=== PATIENT | female | born 1995 | race African-American/Black ===

== ENCOUNTER 2024-06-24 17:04 | Inpatient (IN) | payer OTHER ==
[2024-06-24 17:53] LABS: #Basophils 0.05 10x3/uL (0.0-0.2); %Basophils 0.6 % (0.0-1.0); %Eosinophils 0.6 % (0.0-10.0); %Monocytes 4.2 % (0.0-10.0); %Neutrophils 71.3 % (42.0-75.0); Hemoglobin 14.6 g/dL (12.0-16.0); Mean Corpuscular Hemoglobin 31.1 pg (27.0-31.0); Mean Corpuscular Volume 91.7 fL (78.0-98.0); Mean Platelet Volume 12.3 fL (7.4-10.4); Platelet Count 159 10x3/uL (130-400); RBC Distribution Width 12.9 % (11.5-14.5); Red Blood Cell (RBC) Count 4.69 mill/uL (4.20-5.40)
[2024-06-24 18:21] LABS: ALT (SGPT) 14 U/L (8-55); AST (SGOT) 19 U/L (5-34); Alkaline Phosphatase 88 U/L (40-110); Anion Gap 27 mmol/L (10-20); BUN (Urea Nitrogen) 11 mg/dL (7.0-18.7); Bilirubin, Total 0.3 mg/dL (0.2-1.2); Calc. Creatinine Clearance 0 mL/min (70-130); Calcium 9.3 mg/dL (7.8-10.44); Carbon Dioxide 10 mmol/L (22-29); Chloride 98 mmol/L (98-107); Estimated GFR 58; Globulin 3.9 g/dL (2.4-3.5); Glucose 370 mg/dL (70-105); Lipase 13 U/L (8-78); Potassium 4.6 mmol/L (3.5-5.1); Protein, Total 7.9 g/dL (6.0-8.3); Sodium 130 mmol/L (136-145)
[2024-06-24] MEDS ORDERED: Electrolyte Replacement Protocol 1 EACH IVPB SCH (19:37)
[2024-06-24] MEDS ORDERED: NS 0.9% w/ 20 MEQ KCL 1,000 ML IV PRN (19:37)
[2024-06-24] MEDS ORDERED: Sodium Chloride 0.9% 1,000 ML IV PRN ×4 (19:37)
[2024-06-24] MEDS ORDERED: Calcium Carbonate 500 MG ChewTAB PO PRN (19:37)
[2024-06-24] MEDS ORDERED: Ondansetron PF 4 MG/2 ML Vial IVP PRN (19:37)
[2024-06-24] MEDS ORDERED: Acetaminophen/Codeine 30-300mg Tablet PO PRN (19:37)
[2024-06-24] MEDS ORDERED: Dextrose 5 %-0.45 % NaCl 1,000 ML IV PRN (19:37)
[2024-06-24] MEDS ORDERED: Senokot S 8.6-50 MG TAB PO PRN (19:37)
[2024-06-24] MEDS ORDERED: Acetaminophen 325 MG TAB PO PRN (19:37)
[2024-06-24] MEDS ORDERED: INSULIN REGULAR IN 0.9 % NACL 100 ML IVPB SCH (19:45)
[2024-06-24] MEDS ORDERED: INSULIN REGULAR IN 0.9 % NACL 100 ML ONE (20:16)
[2024-06-24 20:49] LABS: Anion Gap 22 mmol/L (10-20); BUN (Urea Nitrogen) 10 mg/dL (7.0-18.7); Calc. Creatinine Clearance 0 mL/min (70-130); Calcium 9.2 mg/dL (7.8-10.44); Carbon Dioxide 16 mmol/L (22-29); Chloride 99 mmol/L (98-107); Estimated GFR 65; Glucose 257 mg/dL (70-105); Potassium 4.1 mmol/L (3.5-5.1); Sodium 133 mmol/L (136-145)
[2024-06-24 22:09] LABS: Bacteria/HPF None Seen HPF (None Seen); Bilirubin Negative (Negative); Blood, Urine Negative (Negative); CAUTI Indications for Culture Pelvic or flank pain; Clarity Clear (Clear); Glucose, Urine (Dipstick) Greater than 1000 mg/dL (Negative); Ketone, Urine Greater than 150 mg/dL (Negative); Leukocyte Negative Leu/uL (Negative); Nitrite Negative (Negative); Protein, Urine (Dipstick) Negative (Neg-Trace); RBC/HPF 0-3 HPF (0-3); Specific Gravity, Urine 1.018 (1.002-1.036); Squamous Epithelial 0-3 HPF (0-3); Urobilinogen Normal mg/dL (Less than 2); WBC/HPF 0-3 HPF (0-3)
[2024-06-24 22:10] LABS: Urine Culture Reflex No No
[2024-06-24 22:23] VITALS: BMI 25.1
[2024-06-24] MEDS: NS 0.9% w/ 20 MEQ KCL 1,000 ML IV PRN (22:45)
[2024-06-24] MEDS: Dextrose 50% Abboject 50 ML SYRINGE SLOW IVP PRN (23:05)
[2024-06-25 00:34] LABS: Anion Gap 14 mmol/L (10-20); BUN (Urea Nitrogen) 8 mg/dL (7.0-18.7); Calc. Creatinine Clearance 92 mL/min (70-130); Carbon Dioxide 17 mmol/L (22-29); Chloride 107 mmol/L (98-107); Estimated GFR 83; Glucose 164 mg/dL (70-105); Potassium 3.8 mmol/L (3.5-5.1); Sodium 134 mmol/L (136-145)
[2024-06-25] MEDS: D5 1/2 NS w/20 mEq KCL 1,000 ML IV PRN (00:43)
[2024-06-25] MEDS: Sodium Bicarb 50 MEQ/50 ML Abboject 8.4% SYRINGE IVP SCH (01:46)
[2024-06-25] MEDS: Sodium Chloride 0.9% 1,000 ML IV SCH ×2 (01:46→11:26)
[2024-06-25] MEDS: Famotidine/PF 20 mg/2ml Vial SLOW IVP SCH (01:48)
[2024-06-25 04:12] LABS: Hemoglobin A1c 9.4 % (4.0-6.0)
[2024-06-25 04:16] LABS: Anion Gap 12 mmol/L (10-20); Anion Gap 13 mmol/L (10-20); BUN (Urea Nitrogen) 6 mg/dL (7.0-18.7); BUN (Urea Nitrogen) 7 mg/dL (7.0-18.7); Calc. Creatinine Clearance 101 mL/min (70-130); Calc. Creatinine Clearance 99 mL/min (70-130); Calcium 7.8 mg/dL (7.8-10.44); Carbon Dioxide 16 mmol/L (22-29); Chloride 109 mmol/L (98-107); Chloride 110 mmol/L (98-107); Estimated GFR 90; Estimated GFR 92; Glucose 183 mg/dL (70-105); Magnesium 1.5 mg/dL (1.6-2.6); Phosphorus 2.4 mg/dL (2.3-4.7); Sodium 134 mmol/L (136-145)
[2024-06-25] MEDS: Sodium Chloride 0.9% 500 ML IV SCH (04:51)
[2024-06-25] MEDS: Enoxaparin 40 MG (0.4 mL) SYRINGE SC SCH (09:04)
[2024-06-25] MEDS: Fluconazole 100 MG TAB PO SCH (09:14)
[2024-06-25] MEDS: Magnesium 2 GM/50 ML(in water) 2 GM in Premix 1 BAG IVPB SCH (10:07)
[2024-06-25] MEDS: Sodium Bicarbonate Tab 325 MG TAB PO SCH (11:25)
[2024-06-25] MEDS: Insulin Glargine 30 UNITS/0.3 ML VIAL SC SCH (11:25)
[2024-06-25] MEDS ORDERED: Glucagon 1 MG/ML KIT IM PRN (11:47)
[2024-06-25] MEDS ORDERED: Dextrose 5% in Water 1,000 ML IV PRN (11:47)
[2024-06-25] MEDS ORDERED: Dextrose 50% Abboject 50 ML SYRINGE SLOW IVP PRN (11:47)
[2024-06-25 12:14] VITALS: TEMP 98.4
[2024-06-25] MEDS: Insulin Lispro 100 UNIT/ML 10 ML VIAL SC PRN (12:36)
[2024-06-25 14:37] LABS: Anion Gap 11 mmol/L (10-20); BUN (Urea Nitrogen) 4 mg/dL (7.0-18.7); Calc. Creatinine Clearance 112 mL/min (70-130); Calcium 7.9 mg/dL (7.8-10.44); Carbon Dioxide 19 mmol/L (22-29); Chloride 112 mmol/L (98-107); Estimated GFR 104; Glucose 120 mg/dL (70-105); Potassium 3.9 mmol/L (3.5-5.1); Sodium 138 mmol/L (136-145)
[2024-06-25] MEDS ORDERED: Lithium Carbonate 300 MG ER.TAB PO SCH (21:00)
== END 2024-06-25 15:30 | disposition home or self-care (01) | DRG 638 ==
LOC: ERS 17:04 → SUATTDRO 17:04 → ERHOLD 19:35 → IMCU/EMU 22:09
PROVIDERS: ADMIT Internal Medicine; ATTEND Family Medicine
DX: E10.10 Type 1 diabetes mellitus with ketoacidosis without coma (principal); E87.1 Hypo-osmolality and hyponatremia; N17.9 Acute kidney failure, unspecified; F39 Unspecified mood [affective] disorder; B37.31 Acute candidiasis of vulva and vagina
CPT/HCPCS: 36415; 36416; 80048; 80053; 81001; 82010; 83036; 83690; 83735; 84100; 85025; 96365; J1650; J1815; J3475; J3480; J3490; J7030; J7999

== ENCOUNTER 2024-08-15 12:07 | Inpatient (IN) | payer OTHER ==
[2024-08-15 12:36] LABS: Calcium, Ionized (venous) 1.32 mmol/L (1.16-1.32); Chloride (VBG) 101 mmol/L (98-106); Hematocrit-VBG 48 % (36.0-47.0); Hemoglobin (Hb) 16.3 g/dL (11.7-15.5); Sodium 136 mmol/L (133-146)
[2024-08-15 12:37] LABS: pH (venous) 6.965 (7.32-7.43)
[2024-08-15 12:38] LABS: Actual Bicarbonate (HCO3v) 4.6 mEq/L (22-28)
[2024-08-15] MEDS ORDERED: INSULIN REGULAR IN 0.9 % NACL 100 ML ONE (12:42)
[2024-08-15 12:47] LABS: Hematocrit 48.6 % (36.0-47.0); Hemoglobin 15.3 g/dL (12.0-16.0); Mean Corpuscular HGB CONC 31.5 g/dL (32.0-36.0); Mean Corpuscular Hemoglobin 30.6 pg (27.0-31.0); Mean Corpuscular Volume 97.2 fL (78.0-98.0); Mean Platelet Volume 12.2 fL (7.4-10.4); Platelet Count 277 10x3/uL (130-400)
[2024-08-15 12:59] LABS: Phosphorus 6.9 mg/dL (2.3-4.7)
[2024-08-15 13:00] LABS: Troponin I Less than 0.010 ng/mL (< 0.028)
[2024-08-15 13:08] LABS: Band 4 % (5-11); Lymphocytes 7 % (21-51); Monocytes 5 % (0-10); Neutrophil 83 % (42-75); Platelet Adequacy Comment Platelets Normal; Reactive Lymphocytes 1 % (0-10)
[2024-08-15] MEDS ORDERED: Sodium Bicarb 50 mEq/50 ML VIAL ONE (13:08)
[2024-08-15 13:13] LABS: ALT (SGPT) 21 U/L (8-55); AST (SGOT) 20 U/L (5-34); Albumin 4.5 g/dL (3.5-5.0); Alkaline Phosphatase 120 U/L (40-110); BUN (Urea Nitrogen) 22 mg/dL (7.0-18.7); Bilirubin, Total 0.3 mg/dL (0.2-1.2); Calc. Creatinine Clearance 0 mL/min (70-130); Carbon Dioxide Less than 8 mmol/L (22-29); Chloride 100 mmol/L (98-107); Estimated GFR 34; Globulin 4.8 g/dL (2.4-3.5); Glucose 742 mg/dL (70-105); Lipase 16 U/L (8-78); Magnesium 2.2 mg/dL (1.6-2.6); Potassium 6.1 mmol/L (3.5-5.1); Protein, Total 9.3 g/dL (6.0-8.3); Sodium 132 mmol/L (136-145)
[2024-08-15] MEDS: Sodium Bicarb 50 MEQ/50 ML Abboject 8.4% SYRINGE IVP SCH (13:40)
[2024-08-15 14:58] LABS: BHCG - Serum Negative (NEGATIVE); Pregs Control Background? CLEAR/WHITE (CLR/WHITE); Pregs Control Bar Appear? YES (CONTROL BAR)
[2024-08-15 15:39] LABS: Bacteria/HPF None Seen HPF (None Seen); Bilirubin Negative (Negative); Blood, Urine 1+ (Negative); CAUTI Indications for Culture Acute Hematuria; Clarity Clear (Clear); Glucose, Urine (Dipstick) Greater than 1000 mg/dL (Negative); Ketone, Urine 150 mg/dL (Negative); Leukocyte Negative Leu/uL (Negative); Nitrite Negative (Negative); Protein, Urine (Dipstick) 30 mg/dL (Neg-Trace); RBC/HPF None Seen HPF (0-3); Specific Gravity, Urine 1.022 (1.002-1.036); Squamous Epithelial None Seen HPF (0-3); Urobilinogen Normal mg/dL (Less than 2); WBC/HPF 0-3 HPF (0-3)
[2024-08-15 15:40] LABS: Urine Culture Reflex No No
[2024-08-15] MEDS ORDERED: NS 0.9% w/ 20 MEQ KCL 1,000 ML IV PRN ×2 (15:53)
[2024-08-15] MEDS ORDERED: Dextrose 50% Abboject 50 ML SYRINGE SLOW IVP PRN (15:53)
[2024-08-15] MEDS ORDERED: Dextrose 5 %-0.45 % NaCl 1,000 ML IV PRN (15:53)
[2024-08-15] MEDS ORDERED: Sodium Chloride 0.9% 1,000 ML IV PRN ×3 (15:53)
[2024-08-15] MEDS ORDERED: Electrolyte Replacement Protocol 1 EACH IVPB SCH (15:53)
[2024-08-15] MEDS ORDERED: Senokot S 8.6-50 MG TAB PO PRN (15:55)
[2024-08-15] MEDS ORDERED: Calcium Carbonate 500 MG ChewTAB PO PRN (15:55)
[2024-08-15] MEDS ORDERED: Ondansetron PF 4 MG/2 ML Vial IVP PRN (15:55)
[2024-08-15] MEDS ORDERED: Acetaminophen 325 MG TAB PO PRN (15:55)
[2024-08-15] MEDS ORDERED: Ondansetron ODT 4 MG TAB PO PRN (15:55)
[2024-08-15] MEDS ORDERED: INSULIN REGULAR IN 0.9 % NACL 100 ML IVPB SCH (16:00)
[2024-08-15] MEDS: Droperidol 5 MG/2 ML VIAL SLOW IVP SCH (16:45)
[2024-08-15] MEDS: Sodium Chloride 0.9% 1,000 ML IV PRN (17:10)
[2024-08-15 17:54] LABS: Anion Gap 25 mmol/L (10-20); BUN (Urea Nitrogen) 18 mg/dL (7.0-18.7); Calc. Creatinine Clearance 0 mL/min (70-130); Calcium 9.5 mg/dL (7.8-10.44); Carbon Dioxide Less than 8 mmol/L (22-29); Chloride 113 mmol/L (98-107); Estimated GFR 53; Glucose 214 mg/dL (70-105); Potassium 4.5 mmol/L (3.5-5.1); Sodium 140 mmol/L (136-145)
[2024-08-15] MEDS: D5 1/2 NS w/20 mEq KCL 1,000 ML IV PRN (19:01)
[2024-08-15 19:49] VITALS: BMI 23.6
[2024-08-15] MEDS: Famotidine 20 MG TAB PO SCH (20:07)
[2024-08-15] MEDS: Famotidine/PF 20 mg/2ml Vial SLOW IVP SCH (20:07)
[2024-08-15] MEDS: Heparin 5,000 UNITS/ML VIAL SC SCH (20:07)
[2024-08-15 20:54] LABS: Anion Gap 18 mmol/L (10-20); BUN (Urea Nitrogen) 14 mg/dL (7.0-18.7); Calc. Creatinine Clearance 76 mL/min (70-130); Calcium 8.7 mg/dL (7.8-10.44); Carbon Dioxide 11 mmol/L (22-29); Chloride 116 mmol/L (98-107); Estimated GFR 71; Glucose 162 mg/dL (70-105); Potassium 4.2 mmol/L (3.5-5.1); Sodium 141 mmol/L (136-145)
[2024-08-16 01:17] LABS: Anion Gap 15 mmol/L (10-20); BUN (Urea Nitrogen) 11 mg/dL (7.0-18.7); Calc. Creatinine Clearance 73 mL/min (70-130); Calcium 8.3 mg/dL (7.8-10.44); Carbon Dioxide 11 mmol/L (22-29); Chloride 116 mmol/L (98-107); Estimated GFR 68; Glucose 198 mg/dL (70-105); Potassium 3.6 mmol/L (3.5-5.1); Sodium 138 mmol/L (136-145)
[2024-08-16 04:17] LABS: #Basophils 0.03 10x3/uL (0.0-0.2); #Eosinophils Less than 0.03 10x3/uL (0.0-0.7); %Basophils 0.3 % (0.0-1.0); %Lymphocytes 14.4 % (21.0-51.0); %Monocytes 7.2 % (0.0-10.0); %Neutrophils 77.6 % (42.0-75.0); Hematocrit 33.3 % (36.0-47.0); Hemoglobin 11.5 g/dL (12.0-16.0); Mean Corpuscular HGB CONC 34.5 g/dL (32.0-36.0); Mean Corpuscular Hemoglobin 31.3 pg (27.0-31.0); Mean Corpuscular Volume 90.5 fL (78.0-98.0); Mean Platelet Volume 11.5 fL (7.4-10.4); Platelet Count 168 10x3/uL (130-400); RBC Distribution Width 12.9 % (11.5-14.5); Red Blood Cell (RBC) Count 3.68 mill/uL (4.20-5.40)
[2024-08-16 06:44] LABS: Anion Gap 10 mmol/L (10-20); BUN (Urea Nitrogen) 10 mg/dL (7.0-18.7); Calc. Creatinine Clearance 93 mL/min (70-130); Calcium 8.5 mg/dL (7.8-10.44); Carbon Dioxide 15 mmol/L (22-29); Chloride 117 mmol/L (98-107); Estimated GFR 90; Glucose 206 mg/dL (70-105); Magnesium 1.7 mg/dL (1.6-2.6); Phosphorus 0.7 mg/dL (2.3-4.7); Potassium 4.1 mmol/L (3.5-5.1); Sodium 138 mmol/L (136-145)
[2024-08-16] MEDS ORDERED: Potassium Phosphate 30 MMOL in Sodium Chloride 0.9% 250 ML 250 ML IVPB SCH (08:00)
[2024-08-16] MEDS: Magnesium 2 GM/50 ML(in water) 2 GM in Premix 1 BAG IVPB SCH (08:04)
[2024-08-16] MEDS ORDERED: Dextrose 50% Abboject 50 ML SYRINGE SLOW IVP PRN (09:20)
[2024-08-16] MEDS ORDERED: Glucagon 1 MG/ML KIT IM PRN (09:20)
[2024-08-16] MEDS ORDERED: Insulin Regular, Human 100 UNIT/ML 10 ML VIAL SC PRN (09:20)
[2024-08-16] MEDS ORDERED: Dextrose 5% in Water 1,000 ML IV PRN (09:20)
[2024-08-16] MEDS ORDERED: D5 LR w/20 mEq KCL 1,000 ML IV SCH (09:30)
[2024-08-16] MEDS: Insulin Glargine 30 UNITS/0.3 ML VIAL SC SCH (09:50)
[2024-08-16] MEDS: Sodium Phosphate 30 MMOL in Sodium Chloride 0.9% 250 ML 250 ML IVPB SCH (09:51)
[2024-08-16] MEDS ORDERED: Potassium Chloride 20 MEQ in Lactated Ringer's 1,000 ML IV SCH (15:15)
[2024-08-16] MEDS: Insulin Regular, Human 100 UNIT/ML 10 ML VIAL SC PRN (18:43)
[2024-08-17 08:14] LABS: Anion Gap 15 mmol/L (10-20); BUN (Urea Nitrogen) 4 mg/dL (7.0-18.7); Calc. Creatinine Clearance 107 mL/min (70-130); Calcium 8.2 mg/dL (7.8-10.44); Carbon Dioxide 15 mmol/L (22-29); Chloride 109 mmol/L (98-107); Estimated GFR 107; Glucose 306 mg/dL (70-105); Magnesium 1.6 mg/dL (1.6-2.6); Potassium 3.8 mmol/L (3.5-5.1); Sodium 135 mmol/L (136-145)
[2024-08-17 08:20] LABS: Phosphorus 1.7 mg/dL (2.3-4.7)
[2024-08-17] MEDS ORDERED: FLU (Fluarix Triv) TS24-25(6MOS UP)/PF 45 MCG/0.5 ML Syringe IM ONE (09:00)
[2024-08-17] MEDS ORDERED: Insulin Glargine 30 UNITS/0.3 ML VIAL SC SCH (09:00)
[2024-08-17] MEDS ORDERED: Insulin Regular 300 UNITS/3 ML VIAL SC PRN (09:14)
[2024-08-17] MEDS: Potassium Phosphate 30 MMOL in Sodium Chloride 0.9% 250 ML 250 ML IVPB SCH (10:02)
[2024-08-17] MEDS: Magnesium 2 GM/50 ML(in water) 2 GM in Premix 1 BAG IVPB SCH (10:02)
[2024-08-17] MEDS: Insulin Glargine 30 UNITS/0.3 ML VIAL SC SCH (10:03)
[2024-08-17] MEDS: Insulin Regular, Human 100 UNIT/ML 10 ML VIAL SC PRN (12:50)
[2024-08-17 17:08] VITALS: BP 113/68; TEMP 98
[2024-08-18] MEDS ORDERED: Insulin Glargine 30 UNITS/0.3 ML VIAL SC SCH (09:00)
== END 2024-08-17 17:15 | DRG 638 ==
LOC: ERS 12:07 → IMCU/EMU 13:33 → EEVIPCON 13:33 → MSONC 08-16 13:49
PROVIDERS: ADMIT Internal Medicine; ATTEND Internal Medicine
DX: E10.10 Type 1 diabetes mellitus with ketoacidosis without coma (principal); E87.1 Hypo-osmolality and hyponatremia; N17.9 Acute kidney failure, unspecified; E87.5 Hyperkalemia; E83.42 Hypomagnesemia; F31.9 Bipolar disorder, unspecified; D53.9 Nutritional anemia, unspecified; E86.0 Dehydration; E83.39 Other disorders of phosphorus metabolism; Z91.041 Radiographic dye allergy status; Z79.899 Other long term (current) drug therapy; Z79.4 Long term (current) use of insulin
CPT/HCPCS: 36415; 36416; 71045; 80048; 80053; 81001; 82010; 82805; 83690; 83735; 84100; 84484; 84703; 85025; 93005; 94760; 96361; 96365; 96366; 96374; 96375; J1644; J1790; J1815; J3475; J3480; J3490; J7030; J7050

== ENCOUNTER 2024-08-29 12:00 | Inpatient (IN) | payer OTHER ==
[2024-08-29 12:37] LABS: #Basophils 0.04 10x3/uL (0.0-0.2); #Eosinophils Less than 0.03 10x3/uL (0.0-0.7); %Basophils 0.6 % (0.0-1.0); %Eosinophils 0.3 % (0.0-10.0); %Lymphocytes 14.9 % (21.0-51.0); %Monocytes 3.6 % (0.0-10.0); %Neutrophils 80.5 % (42.0-75.0); Hematocrit 35.7 % (36.0-47.0); Hemoglobin 12.1 g/dL (12.0-16.0); Mean Corpuscular HGB CONC 33.9 g/dL (32.0-36.0); Mean Corpuscular Hemoglobin 31.3 pg (27.0-31.0); Mean Corpuscular Volume 92.2 fL (78.0-98.0); Mean Platelet Volume 10.7 fL (7.4-10.4); Platelet Count 286 10x3/uL (130-400); RBC Distribution Width 13.5 % (11.5-14.5); Red Blood Cell (RBC) Count 3.87 mill/uL (4.20-5.40)
[2024-08-29 12:44] LABS: BHCG - Serum Negative (NEGATIVE); Pregs Control Background? CLEAR/WHITE (CLR/WHITE); Pregs Control Bar Appear? YES (CONTROL BAR)
[2024-08-29 12:53] LABS: Lipase 26 U/L (8-78); Magnesium 1.7 mg/dL (1.6-2.6)
[2024-08-29 12:54] LABS: Acetaminophen Less than 10 mcg/mL (Less than 10); Alcohol Less than 10.0 mg/dL (Less than 10); Salicylate Less than 8.0 mg/dL (Less than 8.0)
[2024-08-29 13:34] LABS: Base Excess -11.6 mEq/L (-2.0 to +3.0); Calcium, Ionized (venous) 1.14 mmol/L (1.16-1.32); Chloride (VBG) 105 mmol/L (98-106); Hematocrit-VBG 35 % (36.0-47.0); Hemoglobin (Hb) 11.8 g/dL (11.7-15.5); Potassium (VBG) 3.46 mmol/L (3.70-5.30); Sodium 136 mmol/L (133-146); pH (venous) 7.325 (7.32-7.43)
[2024-08-29 13:37] LABS: Actual Bicarbonate (HCO3v) 12.7 mEq/L (22-28)
[2024-08-29 13:45] LABS: ALT (SGPT) 15 U/L (8-55); AST (SGOT) 13 U/L (5-34); Albumin 3.7 g/dL (3.5-5.0); Alkaline Phosphatase 77 U/L (40-110); Anion Gap 21 mmol/L (10-20); BUN (Urea Nitrogen) 10 mg/dL (7.0-18.7); Bilirubin, Total 0.6 mg/dL (0.2-1.2); Calc. Creatinine Clearance 0 mL/min (70-130); Calcium 8.7 mg/dL (7.8-10.44); Carbon Dioxide 12 mmol/L (22-29); Chloride 103 mmol/L (98-107); Estimated GFR 81; Globulin 3.6 g/dL (2.4-3.5); Glucose 585 mg/dL (70-105); Potassium 3.4 mmol/L (3.5-5.1); Protein, Total 7.3 g/dL (6.0-8.3); Sodium 133 mmol/L (136-145)
[2024-08-29] MEDS ORDERED: NS 0.9% w/ 20 MEQ KCL 1,000 ML IV PRN ×2 (15:24)
[2024-08-29] MEDS ORDERED: Dextrose 50% Abboject 50 ML SYRINGE SLOW IVP PRN (15:24)
[2024-08-29] MEDS ORDERED: Ondansetron PF 4 MG/2 ML Vial IVP PRN (15:24)
[2024-08-29] MEDS ORDERED: Acetaminophen 650 MG Suppository PR PRN (15:24)
[2024-08-29] MEDS ORDERED: Dextrose 5 %-0.45 % NaCl 1,000 ML IV PRN (15:24)
[2024-08-29] MEDS ORDERED: Bisacodyl 10 MG SUPP PR PRN (15:24)
[2024-08-29] MEDS ORDERED: Sodium Chloride 0.9% 1,000 ML IV PRN ×3 (15:24)
[2024-08-29] MEDS ORDERED: Electrolyte Replacement Protocol FS PRN (15:45)
[2024-08-29] MEDS: Sodium Chloride 0.9% 1,000 ML IV PRN (19:16)
[2024-08-29] MEDS: Electrolyte Replacement Protocol 1 EACH IVPB ONE (19:17)
[2024-08-29] MEDS: INSULIN REGULAR IN 0.9 % NACL 100 ML IVPB SCH (19:57)
[2024-08-29 20:31] LABS: Lactic Acid 1.19 mmol/L (0.5-2.2)
[2024-08-29 20:33] LABS: Anion Gap 19 mmol/L (10-20); BUN (Urea Nitrogen) 6 mg/dL (7.0-18.7); Calc. Creatinine Clearance 134 mL/min (70-130); Calcium 8.2 mg/dL (7.8-10.44); Carbon Dioxide 14 mmol/L (22-29); Chloride 107 mmol/L (98-107); Estimated GFR 124; Glucose 351 mg/dL (70-105); Potassium 3.9 mmol/L (3.5-5.1); Sodium 136 mmol/L (136-145)
[2024-08-29] MEDS: Famotidine/PF 20 mg/2ml Vial SLOW IVP SCH (21:37)
[2024-08-29] MEDS: D5 1/2 NS w/20 mEq KCL 1,000 ML IV PRN (21:37)
[2024-08-29] MEDS: Magnesium 2 GM/50 ML(in water) 2 GM in Premix 1 BAG IVPB SCH (21:42)
[2024-08-29 23:05] LABS: Amphetamine Not Detected (NotDetected); Barbiturates Screen Not Detected (NotDetected); Benzodiazepine Screen Not Detected (NotDetected); Cocaine Metabolite Screen Not Detected (NotDetected); Methadone Not Detected (NotDetected); Methamphetamine Not Detected (NotDetected); Opiate Screen Not Detected (NotDetected); Oxycodone Screen Not Detected (NotDetected); Phencyclidine (PCP) Not Detected (NotDetected); THC/Cannabinoid Screen Not Detected (NotDetected); Tricyclic Screen Not Detected (NotDetected)
[2024-08-30] LABS: Anion Gap 11 mmol/L (10-20); BUN (Urea Nitrogen) 5 mg/dL (7.0-18.7); Calc. Creatinine Clearance 137 mL/min (70-130); Calcium 8.3 mg/dL (7.8-10.44); Carbon Dioxide 19 mmol/L (22-29); Chloride 113 mmol/L (98-107); Estimated GFR 124; Glucose 97 mg/dL (70-105); Potassium 3.2 mmol/L (3.5-5.1); Sodium 140 mmol/L (136-145)
[2024-08-30] MEDS: Potassium Chloride 20 MEQ in Premix 1 BAG IVPB SCH (01:42)
[2024-08-30 02:41] LABS: Actual Bicarbonate (HCO3v) 17.6 mEq/L (22-28); Base Excess -7.8 mEq/L (-2.0 to +3.0); Calcium, Ionized (venous) 1.15 mmol/L (1.16-1.32); Chloride (VBG) 106 mmol/L (98-106); Hematocrit-VBG 35 % (36.0-47.0); Hemoglobin (Hb) 11.9 g/dL (11.7-15.5); Potassium (VBG) 4.23 mmol/L (3.70-5.30); Sodium 134 mmol/L (133-146); pH (venous) 7.316 (7.32-7.43)
[2024-08-30 02:47] LABS: #Basophils 0.03 10x3/uL (0.0-0.2); %Basophils 0.5 % (0.0-1.0); %Eosinophils 0.7 % (0.0-10.0); %Lymphocytes 32.5 % (21.0-51.0); %Monocytes 5.1 % (0.0-10.0); Hemoglobin 10.7 g/dL (12.0-16.0); Mean Corpuscular HGB CONC 33.4 g/dL (32.0-36.0); Mean Corpuscular Hemoglobin 31.1 pg (27.0-31.0); Mean Platelet Volume 10.4 fL (7.4-10.4); Platelet Count 246 10x3/uL (130-400); RBC Distribution Width 13.7 % (11.5-14.5); Red Blood Cell (RBC) Count 3.44 mill/uL (4.20-5.40)
[2024-08-30 03:04] LABS: A1c 263.408 g/dL; Hb (HGBA1c) 2881.3292 umol/L; Hemoglobin A1c 10.5 % (4.0-6.0)
[2024-08-30 03:06] LABS: Anion Gap 12 mmol/L (10-20); BUN (Urea Nitrogen) 4 mg/dL (7.0-18.7); Calc. Creatinine Clearance 130 mL/min (70-130); Calcium 7.7 mg/dL (7.8-10.44); Carbon Dioxide 16 mmol/L (22-29); Chloride 111 mmol/L (98-107); Estimated GFR 123; Glucose 268 mg/dL (70-105); Potassium 4.3 mmol/L (3.5-5.1); Sodium 135 mmol/L (136-145)
[2024-08-30 04:47] LABS: ALT (SGPT) 11 U/L (8-55); AST (SGOT) 10 U/L (5-34); Albumin 2.8 g/dL (3.5-5.0); Alkaline Phosphatase 62 U/L (40-110); Bilirubin, Direct 0.3 mg/dL (0.1-0.3); Bilirubin, Total 0.6 mg/dL (0.2-1.2); Protein, Total 5.6 g/dL (6.0-8.3)
[2024-08-30 04:48] LABS: Phosphorus 1.5 mg/dL (2.3-4.7)
[2024-08-30 05:44] LABS: Magnesium 2.3 mg/dL (1.6-2.6)
[2024-08-30] MEDS: Potassium Phosphate 22 MMOL in Sodium Chloride 0.9% 250 ML 250 ML IVPB SCH (05:54)
[2024-08-30] MEDS ORDERED: Glucagon 1 MG/ML KIT IM PRN ×2 (08:47→09:00)
[2024-08-30] MEDS ORDERED: Dextrose 5% in Water 1,000 ML IV PRN ×2 (08:47→09:00)
[2024-08-30] MEDS ORDERED: Dextrose 50% Abboject 50 ML SYRINGE SLOW IVP PRN ×2 (08:47→09:00)
[2024-08-30] MEDS: Insulin Glargine 30 UNITS/0.3 ML VIAL SC SCH (10:07)
[2024-08-30] MEDS: Enoxaparin 40 MG (0.4 mL) SYRINGE SC SCH (10:07)
[2024-08-30] MEDS: risperiDONE 0.25 MG TAB PO SCH (10:07)
[2024-08-30 10:11] LABS: Anion Gap 16 mmol/L (10-20); BUN (Urea Nitrogen) Less than 4 mg/dL (7.0-18.7); Calc. Creatinine Clearance 132 mL/min (70-130); Carbon Dioxide 15 mmol/L (22-29); Chloride 110 mmol/L (98-107); Estimated GFR 123; Glucose 268 mg/dL (70-105); Potassium 4.7 mmol/L (3.5-5.1); Sodium 136 mmol/L (136-145)
[2024-08-30] MEDS: Insulin Lispro 100 UNIT/ML 10 ML VIAL SC PRN ×2 (11:12→19:34)
[2024-08-30] MEDS: Lithium Carbonate 300 MG ER.TAB PO SCH (19:35)
[2024-08-31 05:57] LABS: #Basophils Less than 0.03 10x3/uL (0.0-0.2); %Basophils 0.2 % (0.0-1.0); %Eosinophils 1.1 % (0.0-10.0); %Monocytes 5.2 % (0.0-10.0); %Neutrophils 64.3 % (42.0-75.0); Hematocrit 32.8 % (36.0-47.0); Hemoglobin 11.2 g/dL (12.0-16.0); Mean Corpuscular HGB CONC 34.1 g/dL (32.0-36.0); Mean Corpuscular Hemoglobin 31.4 pg (27.0-31.0); Mean Corpuscular Volume 91.9 fL (78.0-98.0); Mean Platelet Volume 10.4 fL (7.4-10.4); Platelet Count 258 10x3/uL (130-400); RBC Distribution Width 13.8 % (11.5-14.5); Red Blood Cell (RBC) Count 3.57 mill/uL (4.20-5.40)
[2024-08-31 06:24] LABS: Anion Gap 9 mmol/L (10-20); BUN (Urea Nitrogen) 4 mg/dL (7.0-18.7); Calc. Creatinine Clearance 123 mL/min (70-130); Calcium 8.6 mg/dL (7.8-10.44); Carbon Dioxide 23 mmol/L (22-29); Chloride 109 mmol/L (98-107); Estimated GFR 119; Glucose 238 mg/dL (70-105); Magnesium 1.7 mg/dL (1.6-2.6); Phosphorus 2.8 mg/dL (2.3-4.7); Potassium 4.1 mmol/L (3.5-5.1); Sodium 137 mmol/L (136-145)
[2024-08-31] MEDS: Magnesium 2 GM/50 ML(in water) 2 GM in Premix 1 BAG IVPB SCH (08:54)
[2024-08-31 10:27] VITALS: BMI 24.7
[2024-09-01 05:56] LABS: #Basophils Less than 0.03 10x3/uL (0.0-0.2); %Basophils 0.3 % (0.0-1.0); %Lymphocytes 35.7 % (21.0-51.0); %Monocytes 5.8 % (0.0-10.0); %Neutrophils 57.2 % (42.0-75.0); Hematocrit 33.2 % (36.0-47.0); Mean Corpuscular HGB CONC 33.1 g/dL (32.0-36.0); Mean Corpuscular Hemoglobin 31.2 pg (27.0-31.0); Mean Corpuscular Volume 94.1 fL (78.0-98.0); Mean Platelet Volume 10.6 fL (7.4-10.4); Platelet Count 239 10x3/uL (130-400); Red Blood Cell (RBC) Count 3.53 mill/uL (4.20-5.40)
[2024-09-01 06:07] LABS: Anion Gap 14 mmol/L (10-20); BUN (Urea Nitrogen) 6 mg/dL (7.0-18.7); Calc. Creatinine Clearance 102 mL/min (70-130); Calcium 8.7 mg/dL (7.8-10.44); Carbon Dioxide 22 mmol/L (22-29); Chloride 104 mmol/L (98-107); Estimated GFR 95; Glucose 350 mg/dL (70-105); Magnesium 1.9 mg/dL (1.6-2.6); Potassium 4.5 mmol/L (3.5-5.1); Sodium 135 mmol/L (136-145)
[2024-09-01 06:15] LABS: Phosphorus 2.9 mg/dL (2.3-4.7)
[2024-09-01] MEDS: Famotidine 20 MG TAB PO SCH (09:13)
[2024-09-01] MEDS: Magnesium 2 GM/50 ML(in water) 2 GM in Premix 1 BAG IVPB SCH (09:27)
[2024-09-01] MEDS: Insulin Glargine 30 UNITS/0.3 ML VIAL SC SCH (11:36)
[2024-09-01] MEDS: Insulin Lispro 100 UNIT/ML 10 ML VIAL SC SCH (17:00)
[2024-09-01] MEDS: FLU (Fluarix Triv) TS24-25(6MOS UP)/PF 45 MCG/0.5 ML Syringe IM ONE (19:09)
[2024-09-01 23:43] VITALS: BP 100/63; TEMP 98
[2024-09-02] MEDS ORDERED: Insulin Glargine 30 UNITS/0.3 ML VIAL SC SCH (09:00)
== END 2024-09-02 00:57 | DRG 637 ==
LOC: ERS 12:00 → ERHOLD 15:29 → IMCU/EMU 18:48 → T4-B 08-30 16:51
PROVIDERS: ADMIT Family Medicine; ATTEND Internal Medicine
PROC: XX20X89 Monitoring of Brain Electrical Activity, Computer-aided Detection and Notification, New Technology Group 9 (ICD-10-PCS; principal; 2024-08-30)
DX: E10.10 Type 1 diabetes mellitus with ketoacidosis without coma (principal); G93.41 Metabolic encephalopathy; E87.6 Hypokalemia; E83.39 Other disorders of phosphorus metabolism; E88.09 Other disorders of plasma-protein metabolism, not elsewhere classified; F31.9 Bipolar disorder, unspecified; E86.0 Dehydration; E10.65 Type 1 diabetes mellitus with hyperglycemia; Z79.4 Long term (current) use of insulin; Z91.041 Radiographic dye allergy status
CPT/HCPCS: 36415; 36416; 70450; 71045; 80048; 80053; 80076; 80178; 80306; 80307; 82010; 82805; 83036; 83605; 83690; 83735; 84100; 84703; 85025; 93005; 95705; 96360; 96361; J1650; J1815; J3475; J3480; J3490; J7030; J7050

== ENCOUNTER 2024-10-23 13:19 | Emergency (ER) | payer SELFPAY ==
[2024-10-23] MEDS ORDERED: Ibuprofen 800 MG TAB ONE (14:03)
== END 2024-10-23 14:15 | disposition home or self-care (01) ==
LOC: ERS 13:19
DX: M25.561 Pain in right knee (principal); E10.9 Type 1 diabetes mellitus without complications
CPT/HCPCS: 99283